=== PATIENT | female | born 1980 | race Asian ===

== ENCOUNTER 2017-04-14 21:29 | Emergency (ER) | payer OTHER ==
[~2017-04-14] VITALS: Ht 160 cm; Wt 85.3 kg
[~2017-04-14 21:29] MED LIST: HYZAAR1 TA2 PO; ZANTAC 75 PO
[2017-04-14 23:26] VITALS: BP 152/78; TEMP 98.5
== END 2017-04-14 23:30 | disposition home or self-care (01) ==
LOC: ED 21:29
DX: M54.12 Radiculopathy, cervical region (principal); S16.1XXA Strain of muscle, fascia and tendon at neck level, initial encounter; X50.9XXA Other and unspecified overexertion or strenuous movements or postures, initial encounter; Y92.89 Other specified places as the place of occurrence of the external cause
CPT/HCPCS: 93005; 99282